=== PATIENT | male | born 1965 | race Caucasian/White ===

== ENCOUNTER 2018-03-14 10:40 | Inpatient (IN) | payer MEDICARE, MEDICAID ==
[~2018-03-14] VITALS: Ht 172.8 cm; Wt 116.7 kg
[2018-04-09] VITALS (12 sets, daily range): BP systolic 113–142; BP diastolic 44–71; PULSE 68–76; TEMP 97–98.9
[2018-04-09] MEDS ORDERED: PROAIR HFA0.09 MG/AC IH (09:17)
[2018-04-09] MEDS ORDERED: ASPIRIN 81M81 MG/TA2 PO (09:18)
[2018-04-09] MEDS ORDERED: FLEXERIL 1010 MG/TAB PO (09:18)
[2018-04-09] MEDS ORDERED: FERROUS SU325 MG/TAB PO (09:18)
[2018-04-09] MEDS ORDERED: HUMALOG100 U/ML SQ (09:22)
[2018-04-09] MEDS ORDERED: MULTIPLE VITAMI1 TA5 PO (09:23)
[2018-04-09] MEDS ORDERED: LANTUS100 U/ML SQ (09:23)
[2018-04-09] MEDS ORDERED: ZESTRIL 10MG10 MG PO (09:23)
[2018-04-09] MEDS ORDERED: NITROSTAT0.4 MG/TAB SL (09:24)
[2018-04-09] MEDS ORDERED: PRIL40 PO (09:27)
[2018-04-09] MEDS ORDERED: TOPROL XL 25MG25 MG PO (09:28)
[2018-04-09] MEDS ORDERED: NORCO 325 MG-51 TAB PO (09:28)
[2018-04-09] MEDS ORDERED: ZOLOFT 100MG100 MG PO (09:28)
[2018-04-09] MEDS ORDERED: IMDUR 30MG30 MG/TAB PO (09:29)
[2018-04-09] MEDS ORDERED: LIPITOR 40MG TA40 MG PO (09:29)
[2018-04-09] MEDS ORDERED: XANAX 0.5MG0.5 MG PO (09:30)
[2018-04-10 04:20] VITALS: BP 121/51; PULSE 74; TEMP 98.1
[2018-04-10 07:51] LABS: HEMATOCRIT 37.5 % (42.0-52.0); HEMOGLOBIN 12.1 g/dl (13.5-18.0)
[2018-04-10 08:05] VITALS: BP 129/42; PULSE 69; TEMP 98.8
[2018-04-10 11:41] VITALS: BP 110/54; PULSE 58; TEMP 98.6
[2018-04-10 19:56] VITALS: BP 117/43; PULSE 69; TEMP 98.9
[2018-04-11 04:04] VITALS: BP 121/55; PULSE 70; TEMP 97.9
[2018-04-11 06:18] LABS: BASO % 0.2 % (0.0-2.0); EOS # 0.2 (0.0-0.7); EOS % 1.5 % (0-4.0); GRAN # 9.5 (1.4-6.5); GRAN % 73.7 % (42.2-75.2); HEMATOCRIT 35.7 % (42.0-52.0); HEMOGLOBIN 11.3 g/dl (13.5-18.0); LYMPH # 2.1 (1.2-3.4); LYMPH % 16.5 % (20.0-51.0); MEAN CELL VOLUME 87 fl (80.0-100.0); MEAN CORPUSCULAR HEMOGLOBIN 28 pg (27.0-31.0); MEAN CORPUSCULAR HGB CONC 32 g/dl (33.0-37.0); MEAN PLATELET VOLUME 9.5 fl (7.4-10.4); MONO % 7.7 % (1.7-9.3); PLATELET COUNT 264 K/mm3 (130-400); RED BLOOD COUNT 4.09 M/mm3 (4.20-5.60); REDCELL DISTRIBUTION WIDTH-CV 14.1 % (11.5-14.5)
[2018-04-11] MEDS ORDERED: NORCO 325 MG-7.1 TAB PO (06:25)
[2018-04-11 06:39] LABS: CALCIUM 8.3 mg/dL (8.4-10.2); CREATININE, serum 0.85 mg/dL (0.66-1.25); POTASSIUM 4.5 mmol/L (3.4-5.0)
[2018-04-11 10:20] VITALS: BP 121/55; PULSE 70; TEMP 97.9
[2018-04-11] MEDS ORDERED: ULTRAM 50MG TAB50 MG PO (15:15)
== END 2018-04-11 10:25 | DRG 41 ==
LOC: SURG 04-09 07:30 → INPTSU 04-09 08:37 → SURG 04-09 10:30
PROVIDERS: Orthopaedic Surgery; Physician Assistant
PROC: 0Y6J0Z1 Detachment at Left Lower Leg, High, Open Approach (ICD-10-PCS; principal; 2018-04-09 10:30)
DX: E10.610 Type 1 diabetes mellitus with diabetic neuropathic arthropathy (principal); L97.429 Non-pressure chronic ulcer of left heel and midfoot with unspecified severity; E10.621 Type 1 diabetes mellitus with foot ulcer; E78.5 Hyperlipidemia, unspecified; I10 Essential (primary) hypertension; J45.909 Unspecified asthma, uncomplicated; E66.01 Morbid (severe) obesity due to excess calories; Z68.39 Body mass index [BMI] 39.0-39.9, adult
CPT/HCPCS: 99222; 99232-AI; A9284; J0690; J1100; J1815; J2250; J2270; J2405; J2704; J2765; J2795; J3010; J7030; L1830

== ENCOUNTER 2018-04-11 08:58 | Inpatient (IN) | payer MEDICARE, MEDICAID ==
[~2018-04-11] VITALS: Ht 172.7 cm; Wt 109.8 kg
[~2018-04-11 08:58] MED LIST: ASPIRIN 81M81 MG/TA2 PO; FERROUS SU325 MG/TAB PO; FLEXERIL 1010 MG/TAB PO; HUMALOG100 U/ML SQ; IMDUR 30MG30 MG/TAB PO; LANTUS100 U/ML SQ; LIPITOR 40MG TA40 MG PO; MULTIPLE VITAMI1 TA5 PO; NITROSTAT0.4 MG/TAB SL; NORCO 325 MG-51 TAB PO; NORCO 325 MG-7.1 TAB PO; PRIL40 PO; PROAIR HFA0.09 MG/AC IH; TOPROL XL 25MG25 MG PO; XANAX 0.5MG0.5 MG PO; ZESTRIL 10MG10 MG PO; ZOLOFT 100MG100 MG PO
[2018-04-11 11:58] VITALS: BP 123/53; PULSE 80; TEMP 98.5
[2018-04-11] MEDS ORDERED: ULTRAM 50MG TAB50 MG PO (15:15)
[2018-04-11 18:30] VITALS: BP 119/55; PULSE 70; TEMP 98.9
[2018-04-12 04:32] VITALS: BP 134/50; PULSE 80; TEMP 98.5
[2018-04-12 16:25] VITALS: BP 118/50; PULSE 72; TEMP 98.1
[2018-04-13 05:19] VITALS: BP 130/47; PULSE 72; TEMP 98.3
[2018-04-13 16:07] VITALS: BP 133/60; PULSE 66; TEMP 97.9
[2018-04-14 06:25] VITALS: BP 112/59; PULSE 62; TEMP 97.8
[2018-04-14 18:43] VITALS: BP 133/65; PULSE 70; TEMP 98.7
[2018-04-15 06:58] VITALS: BP 131/70; PULSE 66; TEMP 98
[2018-04-15 17:14] VITALS: BP 119/60; PULSE 68; TEMP 98
[2018-04-16 06:05] VITALS: BP 129/59; PULSE 69; TEMP 98.1
[2018-04-16 06:19] LABS: BASO % 0.2 % (0.0-2.0); EOS # 0.2 (0.0-0.7); EOS % 2.8 % (0-4.0); GRAN % 61.7 % (42.2-75.2); HEMATOCRIT 39.3 % (42.0-52.0); HEMOGLOBIN 12.3 g/dl (13.5-18.0); LYMPH # 2.2 (1.2-3.4); LYMPH % 26.7 % (20.0-51.0); MEAN CELL VOLUME 87 fl (80.0-100.0); MEAN CORPUSCULAR HEMOGLOBIN 27 pg (27.0-31.0); MEAN CORPUSCULAR HGB CONC 31 g/dl (33.0-37.0); MONO # 0.6 (0.1-0.6); MONO % 7.7 % (1.7-9.3); PLATELET COUNT 290 K/mm3 (130-400); RED BLOOD COUNT 4.54 M/mm3 (4.20-5.60)
[2018-04-16 06:25] LABS: CALCIUM 8.9 mg/dL (8.4-10.2); CREATININE, serum 0.79 mg/dL (0.66-1.25); MAGNESIUM 1.9 mg/dL (1.6-2.3); POTASSIUM 5.2 mmol/L (3.4-5.0)
[2018-04-16 18:43] VITALS: BP 104/57; PULSE 71; TEMP 98.2
[2018-04-17 06:18] VITALS: BP 106/63; PULSE 74; TEMP 98.1
[2018-04-17 16:21] VITALS: BP 131/59; PULSE 72; TEMP 98
[2018-04-18 04:01] VITALS: BP 129/61; PULSE 64; TEMP 97.5
[2018-04-18 16:47] VITALS: BP 144/57; PULSE 72; TEMP 98.1
[2018-04-19 05:24] VITALS: BP 117/53; PULSE 68; TEMP 99.2
[2018-04-19 16:09] VITALS: BP 105/54; PULSE 66; TEMP 98
[2018-04-20 04:13] VITALS: BP 125/49; PULSE 69; TEMP 98.2
[2018-04-20 18:32] VITALS: BP 109/54; PULSE 75; TEMP 98.6
[2018-04-21 06:28] VITALS: BP 118/63; PULSE 68; TEMP 98.3
[2018-04-21 17:58] VITALS: BP 135/60; PULSE 74; TEMP 97.7
[2018-04-22 06:21] VITALS: BP 123/59; PULSE 64; TEMP 97.7
[2018-04-22] MEDS ORDERED: ASPIRIN 32325 MG/TAB PO (08:25)
[2018-04-22] MEDS ORDERED: TYLENOL 325MG325 MG PO (08:26)
[2018-04-22] MEDS ORDERED: NORCO 325 MG-7.1 TAB PO (08:31)
[2018-04-22] MEDS ORDERED: ROXICODONE 55 MG/TAB PO (08:31)
[2018-04-22 16:07] VITALS: BP 128/57; PULSE 72; TEMP 98.2
== END 2018-04-22 20:10 | disposition home health service (06) | DRG 561 ==
PROVIDERS: Internal Medicine
DX: Z47.81 Encounter for orthopedic aftercare following surgical amputation (principal); Z89.512 Acquired absence of left leg below knee; E11.610 Type 2 diabetes mellitus with diabetic neuropathic arthropathy; E11.42 Type 2 diabetes mellitus with diabetic polyneuropathy; I10 Essential (primary) hypertension; J45.909 Unspecified asthma, uncomplicated; E66.01 Morbid (severe) obesity due to excess calories; Z68.38 Body mass index [BMI] 38.0-38.9, adult; Z91.81 History of falling; Z79.4 Long term (current) use of insulin; E11.65 Type 2 diabetes mellitus with hyperglycemia; E11.319 Type 2 diabetes mellitus with unspecified diabetic retinopathy without macular edema; Z87.891 Personal history of nicotine dependence
CPT/HCPCS: 99222-AI; 99232-AI; 99239; A9284; J1815

== ENCOUNTER → 2019-02-10 | Outpatient (CLI) | payer MEDICARE, MEDICAID ==
[~2019-02-10] MED LIST changes: +ASPIRIN 32325 MG/TAB PO; +ROXICODONE 55 MG/TAB PO; +TYLENOL 325MG325 MG PO; +ULTRAM 50MG TAB50 MG PO
== END ==
LOC: ZCOL.LAB 12:34
DX: Z01.812 Encounter for preprocedural laboratory examination (principal); Z86.14 Personal history of Methicillin resistant Staphylococcus aureus infection

== ENCOUNTER → 2019-02-10 | Outpatient (CLI) | payer MEDICARE, MEDICAID | LOC: ZCOL.LAB 11:45 | DX: Z01.812 Encounter for preprocedural laboratory examination (principal); Z86.14 Personal history of Methicillin resistant Staphylococcus aureus infection ==

== ENCOUNTER 2020-10-16 16:26 | Emergency (ER) | payer MEDICARE, MEDICAID ==
[~2020-10-16] VITALS: Ht 172.7 cm; Wt 122.7 kg
[~2020-10-16 16:26] MED LIST changes: +ASPIRIN E.C. 8181 MG PO; +BRILINTA90 MG PO; +COREG 6.256.25 MG/TA PO
[2020-10-16 18:33] VITALS: BP 170/90; PULSE 81; TEMP 98.3
== END 2020-10-16 18:26 | disposition home or self-care (01) ==
LOC: COL.ER 16:26
DX: R07.9 Chest pain, unspecified (principal); R06.7 Sneezing; G89.29 Other chronic pain; Z87.891 Personal history of nicotine dependence; Z91.041 Radiographic dye allergy status; Z79.891 Long term (current) use of opiate analgesic; Z88.1 Allergy status to other antibiotic agents; Z79.4 Long term (current) use of insulin; Z79.82 Long term (current) use of aspirin
CPT/HCPCS: J1885

== ENCOUNTER → 2021-01-24 | Outpatient (CLI) | payer MEDICARE, MEDICAID | LOC: COL.RAD 12:45 | DX: M47.816 Spondylosis without myelopathy or radiculopathy, lumbar region (principal) ==

== ENCOUNTER → 2021-06-28 | Outpatient (CLI) | payer MEDICARE, MEDICAID | LOC: MHCPAIN 10:05 | DX: M47.817 Spondylosis without myelopathy or radiculopathy, lumbosacral region (principal); M54.50 Low back pain, unspecified; M53.3 Sacrococcygeal disorders, not elsewhere classified; E11.40 Type 2 diabetes mellitus with diabetic neuropathy, unspecified | CPT/HCPCS: G0463 ==

== ENCOUNTER 2024-02-16 16:25 | Emergency (ER) | payer MEDICARE, MEDICAID ==
[~2024-02-16] VITALS: Ht 172.7 cm; Wt 129.5 kg
[2024-02-16 16:30] VITALS: TEMP 98.6
[2024-02-16 17:54] LABS: BASO % 0.1 % (0.0-2.0); EOS # 0.1 K/mm3 (0.0-0.7); EOS % 1.5 % (0.0-4.0); GRAN # 5.2 K/mm3 (1.4-6.5); GRAN % 70.1 % (42.2-75.2); HEMATOCRIT 34.5 % (42.0-52.0); HEMOGLOBIN 11.1 g/dl (13.5-18.0); LYMPH # 1.4 K/mm3 (1.2-3.4); LYMPH % 19.5 % (20.0-51.0); MEAN CELL VOLUME 83 fl (80.0-100.0); MEAN CORPUSCULAR HEMOGLOBIN 27 pg (27-31); MEAN CORPUSCULAR HGB CONC 32 g/dl (33.0-37.0); MONO # 0.6 K/mm3 (0.1-0.6); MONO % 8.4 % (1.7-9.3); PLATELET COUNT 275 K/mm3 (130-400); RED BLOOD COUNT 4.16 M/mm3 (4.20-5.60); REDCELL DISTRIBUTION WIDTH-CV 14.4 % (11.5-14.5)
[2024-02-16 18:13] LABS: ALANINE AMINOTRANSFERASE 33 U/L (0-55); ALBUMIN 3.2 g/dL (3.5-5.0); ALKALINE PHOSPHATASE 78 U/L (40-150); ANION GAP 10 mmol/L (7-16); AST,SGOT 43 U/L (5-34); BILIRUBIN,TOTAL 0.3 mg/dL (0.2-1.2); BLOOD UREA NITROGEN 8 mg/dL (8-26); CALCIUM 8.6 mg/dL (8.4-10.2); CHLORIDE 105 mEq/L (98-107); CREATININE, serum 0.83 mg/dL (0.72-1.25); GLUCOSE 126 mg/dL (70-99); POTASSIUM 4.4 mEq/L (3.5-4.5); SODIUM 139 mEq/L (136-145); TOTAL PROTEIN 6.3 g/dl (6.2-8.1)
[2024-02-16 18:24] LABS: LIPASE < 7 U/L (8-78)
[2024-02-16 18:26] LABS: TROPONIN-I 0.652 ng/mL (0.00-0.033)
[2024-02-16] MEDS ORDERED: Heparin 5,000 UNITS/ML 1 ML VIAL IV ONE (19:30)
[2024-02-16] MEDS ORDERED: Atorvastatin 80 MG TAB PO ONE (19:30)
[2024-02-16] MEDS ORDERED: Atorvastatin 40 MG TAB PO ONE (19:30)
[2024-02-16] MEDS ORDERED: Heparin/D5W 250 ML IV SCH (19:30)
[2024-02-16] MEDS ORDERED: traMADol 50 MG TAB PO ONE (19:30)
[2024-02-16] MEDS ORDERED: Heparin 5,000 UNITS/ML 1 ML VIAL IV PRN (19:30)
[2024-02-16 19:50] LABS: INR 1.1 (0.8-3.0); PROTHROMBIN TIME 11.6 SECONDS (9.7-12.8)
[2024-02-16 19:53] LABS: PARTIAL THROMBOPLASTIN TIME 28.3 SECONDS (26.0-37.0)
[2024-02-16] MEDS ORDERED: Insulin Regular Human (NovoLIN R/HumuLIN R) SQ ONE (20:45)
[2024-02-16] MEDS ORDERED: Insulin Lispro (HumaLOG) SQ ONE (20:45)
[2024-02-16 22:12] LABS: HEMOGLOBIN 10.9 g/dl (13.5-18.0); MEAN CELL VOLUME 82 fl (80.0-100.0); MEAN CORPUSCULAR HEMOGLOBIN 27 pg (27-31); MEAN CORPUSCULAR HGB CONC 32 g/dl (33.0-37.0); MEAN PLATELET VOLUME 8.9 fl (7.4-10.4); PLATELET COUNT 251 K/mm3 (130-400); REDCELL DISTRIBUTION WIDTH-CV 14.4 % (11.5-14.5)
[2024-02-16 22:14] LABS: HEMATOCRIT 33.6 % (42.0-52.0)
[2024-02-16] MEDS ORDERED: Pregabalin 50 MG CAP PO ONE (23:00)
[2024-02-16] MEDS ORDERED: oxyCODONE/Acetaminophen 10-325 MG TAB PO ONE (23:00)
[2024-02-16] MEDS ORDERED: metFORMIN 500 MG TAB PO ONE (23:00)
[2024-02-16] MEDS ORDERED: Insulin Glargine-ygfn (Lantus) SQ ONE (23:15)
[2024-02-17 00:05] VITALS: BP 158/100; PULSE 95
[2024-02-17] MEDS ORDERED: DAZIDOX10 MG PO (00:34)
[2024-02-17] MEDS ORDERED: LASIX 20MG TABL20 MG PO (00:34)
[2024-02-17] MEDS ORDERED: ATARAX50 MG PO (00:35)
[2024-02-17] MEDS ORDERED: ISOSORBIDE MON120 MG PO (00:36)
[2024-02-17] MEDS ORDERED: PROAIR HFA0.09 MG/AC IH (00:38)
[2024-02-17] MEDS ORDERED: PRINIVIL10 MG PO (00:38)
[2024-02-17] MEDS ORDERED: NOVOLOG FLEX100 U/ML SQ (00:41)
[2024-02-17] MEDS ORDERED: LYRICA200 MG PO (00:42)
[2024-02-17] MEDS ORDERED: GLUCOPHAGE XR500 M1 PO (00:43)
== END 2024-02-17 00:05 | disposition short-term general hospital (02) ==
LOC: COL.ER 16:25
PROVIDERS: Physician Assistant
DX: I21.4 Non-ST elevation (NSTEMI) myocardial infarction (principal); E66.01 Morbid (severe) obesity due to excess calories; E10.9 Type 1 diabetes mellitus without complications; Z79.4 Long term (current) use of insulin; Z68.41 Body mass index [BMI] 40.0-44.9, adult
CPT/HCPCS: J1644; J1815

== ENCOUNTER 2024-04-14 14:56 | Outpatient (RCR) | payer MEDICARE, MEDICAID ==
[~2024-04-14 14:56] MED LIST changes: +ATARAX50 MG PO; +DAZIDOX10 MG PO; +GLUCOPHAGE XR500 M1 PO; +ISOSORBIDE MON120 MG PO; +LASIX 20MG TABL20 MG PO; +LYRICA200 MG PO; +NOVOLOG FLEX100 U/ML SQ; +PRINIVIL10 MG PO
== END 2024-04-16 | disposition home or self-care (01) ==
LOC: COL.CR
DX: Z48.812 Encounter for surgical aftercare following surgery on the circulatory system (principal); Z98.61 Coronary angioplasty status; I25.2 Old myocardial infarction; I50.9 Heart failure, unspecified